=== PATIENT | female | born 1960 | race Caucasian/White ===

== ENCOUNTER 2021-07-01 15:40 | Emergency (ER) | payer BC, SELFPAY ==
--- NOTE | ~2021-07-01 | US_ITS ---
EXAMINATION: ULTRASOUND PELVIC, COMPLETE CLINICAL INFORMATION: Left-sided pain. Concern for ovarian torsion. COMPARISON: CT scan and pelvis July 01, 2021 TECHNIQUE: Transvaginal: Used to better visualize pelvic structures Transabdominal: Not adequate for visualization. Spectral Doppler and color Doppler exam was utilized. LMP: Status post hysterectomy FINDINGS: UTERUS: Status post hysterectomy ADNEXA: Right adnexa: The right ovary is not visualized. No adnexal abnormality. Left adnexa: Ovarian vascularity:Doppler demonstrates both arterial and venous vascular flow in the left ovary. No evidence of ovarian torsion. Left Ovary: Unremarkable. 2.3 x 1.2 x 1.4 cm. Volume 2 mL. Cul-de-sac: No Fluid US/US pelvic and transvaginal IMPRESSION: 1. Status post hysterectomy. 2. Right ovary is not visualized. There is no abnormality in the adnexa. 3. Normal left ovary. 4. No fluid in the cul-de-sac.
--- NOTE | ~2021-07-01 | US_ITS ---
EXAMINATION: ULTRASOUND PELVIC, COMPLETE CLINICAL INFORMATION: Left-sided pain. Concern for ovarian torsion. COMPARISON: CT scan and pelvis July 01, 2021 TECHNIQUE: Transvaginal: Used to better visualize pelvic structures Transabdominal: Not adequate for visualization. Spectral Doppler and color Doppler exam was utilized. LMP: Status post hysterectomy FINDINGS: UTERUS: Status post hysterectomy ADNEXA: Right adnexa: The right ovary is not visualized. No adnexal abnormality. Left adnexa: Ovarian vascularity:Doppler demonstrates both arterial and venous vascular flow in the left ovary. No evidence of ovarian torsion. Left Ovary: Unremarkable. 2.3 x 1.2 x 1.4 cm. Volume 2 mL. Cul-de-sac: No Fluid US/US pelvic ovarian doppler IMPRESSION: 1. Status post hysterectomy. 2. Right ovary is not visualized. There is no abnormality in the adnexa. 3. Normal left ovary. 4. No fluid in the cul-de-sac.
--- NOTE | ~2021-07-01 | CT_ITS ---
EXAMINATION: CT ABDOMEN AND PELVIS WITHOUT CONTRAST CLINICAL INFORMATION: Left flank pain. COMPARISON: None TECHNIQUE: Multidetector volumetric imaging was performed from the superior aspect of the liver through the pubic symphysis. Sagittal and coronal reformatted images were obtained on the technologist's workstation. This CT examination was performed using dose optimization techniques as appropriate, variously including the following: *Automated exposure control *Adjustment of mA and/or kV according to patient size (this includes techniques or standardized protocols for targeted exams where dose is matched to indication/reason for exam; i.e. extremities or head) *Use of iterative reconstruction technique DLP: 537 mGy-cm FINDINGS: LUNG BASES: The visualized lung bases are unremarkable. LIVER, GALLBLADDER, AND BILIARY TREE: The liver is normal in size, shape, and attenuation. No focal hepatic lesion or biliary ductal dilatation is present. Status post cholecystectomy PANCREAS: Unremarkable. SPLEEN: Unremarkable. ADRENAL GLANDS: Unremarkable. KIDNEYS AND URETERS: There is a nonobstructive stone in the mid lower pole right kidney measuring 5 x 3 mm in size. There is no ureteral stone. There is no hydronephrosis. (The 5 mm calcification in the right side of the pelvis axial image 476/720 series 4 does not lie within the ureter and is a vascular calcification.) The right kidney and ureter are normal. BLADDER: Unremarkable. GASTROINTESTINAL TRACT: No acute abnormality. There is no bowel wall thickening /edema. There is no bowel obstruction. There is a moderate to large volume of stool in the colon. The appendix is normal . The small bowel loops are unremarkable. The stomach is normal. There is no hiatal hernia. ABDOMINAL WALL: No significant hernia is appreciated. LYMPH NODES: Normal. VASCULAR: Unremarkable. PELVIC VISCERA: Unremarkable. OSSEOUS STRUCTURES: Multilevel degenerative spondylosis of the spine. CT/CT abdomen pelvis wo con IMPRESSION: 1. Nonobstructive stone right kidney. No ureteral calculi or hydronephrosis. 2. No acute change of the bowel. 3. Status post cholecystectomy.
--- NOTE | 2021-07-01 17:27 | ED_ITS ---
HPI - Abdominal Pain General Chief Complaint: Abdominal Pain Stated Complaint: ovarian cyst? Time Seen by Provider: 07/01/21 17:27 Related Data Allergies Allergy/AdvReac Type Severity Reaction Status Date / Time No Known Allergies Allergy Verified 07/01/21 17:33 Physical Exam Vital Signs: Vital Signs: Last Vital Signs Temp 97.8 F 07/01/21 22:24 Pulse 54 07/01/21 22:24 Resp 18 07/01/21 22:24 BP 110/58 L 07/01/21 22:24 Pulse Ox 97 07/01/21 22:24 Body Mass Index 26.4 Course Course Course Narrative: This is RME in triage. Full medical eval will be performed by ED provider. 61yo PMHX ovarian cyst in the past s/p cystectmy sent in from for LLQ abd pain rad to back +nausea x3 days.Pt visiting from [place]. \Denies vomiting & urinary sx, fever On exam Abd soft +LLQ/suprapubic ttp and L CVAT Labs, UA ordered in triage MDM - Abdominal Pain Lab Data Result diagrams: 07/01/21 18:01 07/01/21 18:01 Labs: Lab Results 07/01/21 07/01/21 07/01/21 Range/Units 18:01 18:01 18:01 WBC 5.4 (4.8-10.8) X10*3/uL RBC 4.70 (4.20-5.50) X10*6/uL Hgb 14.7 (12.0-16.0) g/dl Hct 44.4 (37-47) % MCV 94.5 (80-98) fL MCH 31.3 (27.0-33.0) pg MCHC 33.1 (31.0-35.0) g/dl RDW 12.7 (11.0-16.0) % Plt Count 271 (160-400) X10*3/uL MPV 10.6 (9.4-12.3) fL Immature Gran % (Auto) 0.6 H (0.0-0.4) % Neut % (Auto) 52.4 (45-73) % Lymph % (Auto) 33.9 (20-40) % [place] % (Auto) 8.7 (2-11) % Eos % (Auto) 3.7 (0-4) % Baso % (Auto) 0.7 (0-2) % Lymph # (Auto) 1.8 (1.2-4.9) X10*3/uL [place] # (Auto) 0.5 (0.1-1.2) X10*3/uL Eos # (Auto) 0.2 (0.0-0.4) X10*3/uL Baso # (Auto) 0.0 (0.0-0.2) X10*3/uL Abs Immat Gran (auto) 0.03 (0.00-0.03) X10*3/uL Absolute Neuts (auto) 2.8 (2.0-8.3) X10*3/uL Absolute Nucleated RBC 0.000 (0.0-0.012) X10*3/uL Nucleated RBC % (auto) 0.0 (0.0-0.2) /100WBC Sodium 139 (135-145) mmol/L Potassium 4.8 (3.3-5.1) mmol/L Chloride 101 (96-108) mmol/L Carbon Dioxide 26 (22-29) mmol/L Anion Gap 17 (12-20) BUN 14 (9-16) mg/dL Creatinine 0.70 (0.5-1.4) mg/dL Estim Creat Clear Calc 89.3 Estimated GFR > 60 Random Glucose 89 (60-115) mg/dL Calcium 10.7 H (8.4-10.2) mg/dL Magnesium 2.3 (1.6-2.6) mg/dL Total Bilirubin 0.5 (0.0-1.0) mg/dL Direct Bilirubin 0.2 (0.0-0.5) mg/dL AST 29 (5-31) U/L ALT 26 (0-31) U/L Alkaline Phosphatase 113 (39-117) U/L Total Protein 7.9 (6.5-8.0) g/dL Albumin 4.8 (3.5-5.0) g/dL Lipase 24 (8-78) U/L Urine Color YELLOW Urine Appearance CLEAR Urine pH 6.5 (5.0-8.0) Ur Specific [place] <= 1.005 (1.005-1.025) Urine Protein NEG (NEG-TRACE) MG/DL Urine Glucose (UA) NEG (NEG) MG/DL Urine Ketones NEG (NEG) MG/DL Urine Blood NEG (NEG) Urine Nitrite NEG (NEG) Ur Leukocyte Esterase NEG (NEG) Discharge Plan Discharge Clinical Impression: Abdominal pain Patient Disposition: Still a Patient PMFSH Social History Social History Advance Directives: No Advance Directives Information Provided: Yes Patient : No
[2021-07-01 17:31] VITALS: BP 148/91; PULSE 60; RESP 16; TEMP 36.1; O2SAT 97; BMI 26.4
[2021-07-01 18:09] LABS: MANUAL DIFF FLAG NO
[2021-07-01 18:21] LABS: Glucose Urine UA NEG (NEG); Leukocyte Esterase Urine NEG (NEG); Nitrite Urine NEG (NEG); PH 6.5 (5.0-8.0); Specific Gravity - Urine <= 1.005 (1.005-1.025); Urine Blood NEG (NEG); Urine Ketones NEG (NEG); Urine Protein NEG (NEG-TRACE)
[2021-07-01 18:22] LABS: Appearance Urine CLEAR; Color Urine YELLOW
[2021-07-01 18:32] LABS: Basophils Percent Auto 0.7 % (0-2); Eosinophils Absolute Auto 0.2 X10*3/uL (0.0-0.4); Eosinophils Percent Auto 3.7 % (0-4); Hematocrit 44.4 % (37-47); Hemoglobin 14.7 g/dl (12.0-16.0); Imm Gran Abs Auto 0.03 X10*3/uL (0.00-0.03); Imm Gran Pct Auto 0.6 % (0.0-0.4); Lymphocytes Absolute Auto 1.8 X10*3/uL (1.2-4.9); Lymphocytes Percent Auto 33.9 % (20-40); Mean Corpuscular HGB Conc 33.1 g/dl (31.0-35.0); Mean Corpuscular Hemoglobin 31.3 pg (27.0-33.0); Mean Corpuscular Volume 94.5 fL (80-98); Mean Platelet Volume 10.6 fL (9.4-12.3); Monocytes Absolute Auto 0.5 X10*3/uL (0.1-1.2); Monocytes Percent Auto 8.7 % (2-11); Neutrophils Absolute Auto 2.8 X10*3/uL (2.0-8.3); Neutrophils Percent Auto 52.4 % (45-73); Platelet Count 271 X10*3/uL (160-400); Red Cell Distribution Width 12.7 % (11.0-16.0); White Blood Count 5.4 X10*3/uL (4.8-10.8)
[2021-07-01 18:51] LABS: Alanine Aminotransferase 26 U/L (0-31); Albumin Level 4.8 g/dL (3.5-5.0); Alkaline Phosphatase 113 U/L (39-117); Anion Gap 17 (12-20); Aspartate Amino Transferase 29 U/L (5-31); Bilirubin Direct 0.2 mg/dL (0.0-0.5); Bilirubin Total 0.5 mg/dL (0.0-1.0); Blood Urea Nitrogen 14 mg/dL (9-16); Calcium 10.7 mg/dL (8.4-10.2); Carbon Dioxide 26 mmol/L (22-29); Chloride 101 mmol/L (96-108); Creatinine Clr Calc Pharmacy 89.3; Estimated Glomerular Filt Rate > 60; Glucose Random 89 mg/dL (60-115); Lipase 24 U/L (8-78); Magnesium 2.3 mg/dL (1.6-2.6); Potassium 4.8 mmol/L (3.3-5.1); Sodium 139 mmol/L (135-145); Total Protein 7.9 g/dL (6.5-8.0)
--- NOTE | 2021-07-01 20:54 | ED.ABDPAIN ---
HPI - Abdominal Pain General Chief Complaint: Abdominal Pain Stated Complaint: ovarian cyst? Time Seen by Provider: 07/01/21 17:27 Source: patient Mode of arrival: ambulatory Limitations: no limitations History of Present Illness HPI narrative: 61-year-old female who presents emergency department for evaluation of abdominal pain x3 days. She states that the pain came on gradually 3 days prior and was initially 2 to 3/10. She states the pain then quickly got worse and has been 8/10 and is currently 8 out 10 in the emergency department . The pain is a constant, sharp pain. The pain does radiate to her left flank and this is a sharp, constant pain as well. She has experienced chills but denied fever. She has noted nausea but no vomiting. She denied frequency, urgency or dysuria. She has had no change in her bowel movements. This is her 1st episode of this type of pain. She has been taking Tylenol and ibuprofen with no relief for pain. Related Data Previous Rx's Medication Instructions Recorded morphine 15 mg immediate release 15 mg PO Q4-6H PRN #10 tab 07/01/21 tablet ondansetron 4 mg disintegrating 4 mg PO Q6-8H PRN #14 tab 07/01/21 tablet Allergies Allergy/AdvReac Type Severity Reaction Status Date / Time No Known Allergies Allergy Verified 07/01/21 17:33 Review of Systems Review of Systems Yes all other systems are reviewed and are negative Physical Exam Vital Signs: Vital Signs: Last Vital Signs Temp 97.8 F 07/01/21 22:24 Pulse 54 07/01/21 22:24 Resp 18 07/01/21 22:24 BP 110/58 L 07/01/21 22:24 Pulse Ox 97 07/01/21 22:24 Body Mass Index 26.4 Const: General: cooperative and no acute distress Orientation/consciousness: oriented to person and oriented to place Limitations: no limitations HENMT: Head: Yes normal to inspection, Yes normocephalic and Yes atraumatic Ears: external ears normal General nose exam: Normal external nose present Face and sinus: Yes normal facial exam Mouth: Normal oral and palatal mucosa present Throat: Yes posterior oropharynx normal Eyes: General: appearance normal, both eyes and all related structures Pupils: Equal, round and reactive pupils present Neck: Neck: Yes normal visual inspection, Yes no lymphadenopathy, Yes trachea midline and Yes supple Chest: Chest palpation & inspection: normal inspection of the chest and normal palpation of entire chest wall Resp: Effort & Inspection: normal respiratory effort and able to speak in complete sentences Auscultation: clear to auscultation bilaterally Cardio: Rate: regular rate Rhythm: regular rhythm Heart sounds: S1 normal heart sound present, S2 normal heart sound present and no murmurs GI: Inspection: Yes normal to inspection Palpation (GI): Soft to palpation, Tenderness to palpation present (GI) in the LLQ (Moderate) and in the LUQ (Mild) and no guarding Auscultation: normal bowel sounds : General: Yes CVA tenderness on the left (Moderate) Back/Spine/Pelvis: Back: CVA tenderness Skin: General skin exam: no rashes or lesions noted Neuro: General: oriented to person and oriented to place Cranial nerves: Yes CN's II-XII intact bilaterally and Yes Equal, round and reactive pupils present Cognition (Neuro): normal cognition Motor exam (neuro): 5/5 motor strength present throughout Extrem: General: Yes normal to inspection Psych: Appearance: grossly normal Speech and movement: Normal speech and movement present Affect: normal affect Attitude: cooperative Thought process: Normal thought process present Thought content: Normal thought content present Course Course Course Narrative: 61-year-old female who presents emergency department for evaluation of left lower quadrant pain and left flank pain x3 days. The pain came on gradually above quickly became severe and is currently 8/10. Patient associated chills and nausea with no other symptoms. There was no relief of the pain with Tylenol and ibuprofen. Vital signs revealed an elevated blood pressure of 148/91 otherwise were unremarkable. Physical examination revealed left upper and left lower quadrant tenderness and left CVA tenderness. The patient had a CBC, CMP, lipase and urinalysis which were normal. I did order CT scan of the patient's abdomen pelvis without contrast to rule out possible kidney stone as the cause of her pain. She was ordered to get normal saline x1 L, Toradol 30 mg IV pain and Zofran 4 mg IV for her nausea 2342: The patient's CT scan of the abdomen pelvis without IV contrast revealed no cause for the patient's left-sided pain. Patient does have a right 5 mm x 3 mm kidney stone. A Doppler ultrasound was ordered to rule out ovarian torsion, patient's right ovary was not visualized, the left ovary was normal with no cyst, no free fluid in the pelvis and no evidence for torsion. At this time I do not have a clear cause for the patient's pain. Patient only got minimal relief of her pain with the IV Toradol and Zofran, she is driving so she was not given any more pain medications. The patient was advised to take ibuprofen 600 mg every 6 hours and Tylenol 1000 mg every 6 hours for her pain. For pain not relieved by these 2 medications she was prescribed morphine 15 mg every 4 hours as needed for pain. The patient was given verbal and printed instructions prior to discharge. The patient was advised to follow-up with her PCP in 2 days and to return to the emergency department if her symptoms get worse or if she develops any new symptoms that are concerning to her. MDM - Abdominal Pain Lab Data Result diagrams: 07/01/21 18:07/01/21 18: Labs: Lab Results 07/01/21 07/01/21 07/01/21 Range/Units 18: 18: 18:01 WBC 5.4 (4.8-10.8) X10*3/uL RBC 4.70 (4.20-5.50) X10*6/uL Hgb 14.7 (12.0-16.0) g/dl Hct 44.4 (37-47) % MCV 94.5 (80-98) fL MCH 31.3 (27.0-33.0) pg MCHC 33.1 (31.0-35.0) g/dl RDW 12.7 (11.0-16.0) % Plt Count 271 (160-400) X10*3/uL MPV 10.6 (9.4-12.3) fL Immature Gran % (Auto) 0.6 H (0.0-0.4) % Neut % (Auto) 52.4 (45-73) % Lymph % (Auto) 33.9 (20-40) % [place] % (Auto) 8.7 (2-11) % Eos % (Auto) 3.7 (0-4) % Baso % (Auto) 0.7 (0-2) % Lymph # (Auto) 1.8 (1.2-4.9) X10*3/uL [place] # (Auto) 0.5 (0.1-1.2) X10*3/uL Eos # (Auto) 0.2 (0.0-0.4) X10*3/uL Baso # (Auto) 0.0 (0.0-0.2) X10*3/uL Abs Immat Gran (auto) 0.03 (0.00-0.03) X10*3/uL Absolute Neuts (auto) 2.8 (2.0-8.3) X10*3/uL Absolute Nucleated RBC 0.000 (0.0-0.012) X10*3/uL Nucleated RBC % (auto) 0.0 (0.0-0.2) /100WBC Sodium 139 (135-145) mmol/L Potassium 4.8 (3.3-5.1) mmol/L Chloride 101 (96-108) mmol/L Carbon Dioxide 26 (22-29) mmol/L Anion Gap 17 (12-20) BUN 14 (9-16) mg/dL Creatinine 0.70 (0.5-1.4) mg/dL Estim Creat Clear Calc 89.3 Estimated GFR > 60 Random Glucose 89 (60-115) mg/dL Calcium 10.7 H (8.4-10.2) mg/dL Magnesium 2.3 (1.6-2.6) mg/dL Total Bilirubin 0.5 (0.0-1.0) mg/dL Direct Bilirubin 0.2 (0.0-0.5) mg/dL AST 29 (5-31) U/L ALT 26 (0-31) U/L Alkaline Phosphatase 113 (39-117) U/L Total Protein 7.9 (6.5-8.0) g/dL Albumin 4.8 (3.5-5.0) g/dL Lipase 24 (8-78) U/L Urine Color YELLOW Urine Appearance CLEAR Urine pH 6.5 (5.0-8.0) Ur Specific [place] <= 1.005 (1.005-1.025) Urine Protein NEG (NEG-TRACE) MG/DL Urine Glucose (UA) NEG (NEG) MG/DL Urine Ketones NEG (NEG) MG/DL Urine Blood NEG (NEG) Urine Nitrite NEG (NEG) Ur Leukocyte Esterase NEG (NEG) Discharge Plan Discharge Clinical Impression: Abdominal pain Qualifiers: Abdominal location: left lower quadrant Qualified Code(s): R10.32 - Left lower quadrant pain Patient Disposition: Home, Self-Care Instructions: Abdominal Pain (ED) Additional Instructions: Your blood work was normal. Your urinalysis was normal. The CT scan of your abdomen pelvis without IV contrast did not reveal a clear cause for your left-sided pain. You do have a 5 x 3 mm right kidney stone but this is not causing pain. The Doppler ultrasound of your ovaries did not visualize your right ovary. Your left ovary was normal. There was no ovarian cyst noted and there was no free fluid in your pelvis to suggest that you had a ruptured ovarian cyst. The blood flow to your left ovary was normal as well. At this time I do not have a clear cause for your pain. This is not uncommon and sometimes we cannot determine the cause of your pain at your 1st emergency department visit. If you developed a rash on the left side of the body were your having the pain then shingles needs to be considered and you should follow-up with her doctor return to the emergency department to get started on anti single medications. Take ibuprofen 200 mg pills, 3 pills every 6 hours as needed for pain for the next 3 days. If you are still having pain 2 hours after you take the ibuprofen then take Tylenol (acetaminophen) 2 pills every 6 hours as needed for pain. For pain not relieved by ibuprofen or Tylenol take morphine 15 mg pills, 1 pill every 4 hours as needed for pain. This medication will make you sleepy, do not drive or work while taking this medication. Morphine is a narcotic medication and can be addicting. If you are concerned about addiction you can ask the pharmacist for less pills or do not get this prescription filled. Take Zofran ODT 4 mg pills, 1 pill dissolved in your mouth every 8 hours as needed for nausea and vomiting. Follow-up with your doctor in 2 days. Please return to the emergency department if your symptoms get worse or if you develop any symptoms that are concerning to you. Prescriptions: New morphine 15 mg tablet 15 mg PO Q4-6H PRN (Reason: pain) Qty: 10 RF: 0 ondansetron 4 mg tablet,disintegrating 4 mg PO Q6-8H PRN (Reason: nausea and vomiting) Qty: 14 RF: 0 PMFSH Past Medical History PMFSH Narrative: Past medical history: Depression. Past surgical history: Cholecystectomy, ?florencio jaramillo 9 years prior. Hysterectomy -she still has both ovaries, bilateral meniscus repair, left ACL repair, right shoulder replacement, carpal tunnel surgery. Social history: The patient is a former smoker and she stop smoking in 2011. She smoked for 12 years. She occasionally drinks alcohol. She denies drug use. Social History Social History Advance Directives: No Advance Directives Information Provided: Yes Patient : No
[2021-07-01 21:02] VITALS: BP 129/86; PULSE 59; RESP 16; O2SAT 97
[2021-07-01] MEDS: Ketorolac Tromethamine 15 MG/ML VIAL 30 MG IVPUSH (21:19)
[2021-07-01] MEDS: ondansetron HCL 4 MG/2 ML VIAL IVPUSH (21:19)
[2021-07-01] MEDS: 0.9 % Sodium Chloride 1,000 ML 999 ML IV (21:19)
[2021-07-01 22:24] VITALS: BP 110/58; PULSE 54; RESP 18; TEMP 36.6; O2SAT 97
== END 2021-07-02 00:15 | disposition home or self-care (01) ==
PROVIDERS: Physician Assistant; Emergency Provider Emergency Medicine Emergency Medical Services
DX: R10.32 Left lower quadrant pain (principal)
CPT/HCPCS: 36415; 74176; 76830; 76856; 80048; 80076; 81003; 83690; 83735; 85025; 93975; 96361; 96374; 96375; 99284; J1885; J2405